=== PATIENT | female | born 1990 | race Caucasian/White ===

== ENCOUNTER 2024-06-02 13:24 | Observation (INO) | payer MEDICAID, SELFPAY ==
[2024-06-02] VITALS (12 sets, daily range): BP systolic 151–199; BP diastolic 74–92; PULSE 41–59; RESP 15–20; TEMP 36.5–36.8; O2SAT 95–100; BMI 38.9; BMI 39.3
--- NOTE | 2024-06-02 13:45 | ED_ITS ---
HPI - Abdominal Pain 2 General: Chief Complaint: Abdominal Pain Stated Complaint: stomach pain, back pain, vomiting, chills Time Seen by Provider: 06/02/24 13:38 History of Present Illness: 33-year-old female presents to the [facility] ency room complaining of periumbilical right upper quadrant pain radiating to her back with nausea and vomiting that began yesterday. Does not have anything that seem to precipitate or relieve it that she is noted. She previously has had a appendectomy. Denies dysuria urgency or frequency or vomiting. Associated Symptoms: Denies chills, dysuria and fever(s) Related Data Previous Rx's Medication Instructions Recorded clindamycin HCl 150 mg capsule 150 mg PO Q6H 7 days #28 caps 06/03/24 docusate sodium 100 mg capsule 100 mg PO BID #14 caps 06/03/24 (Colace) hydrocodone 7.5 mg-acetaminophen 1 tab PO Q6H PRN pain #20 tabs 06/03/24 325 mg tablet polyethylene glycol 3350 17 17 g PO DAILY 7 days #119 grams 06/03/24 gram/dose oral powder (Miralax) Allergies Allergy/AdvReac Type Severity Reaction Status Date / Time Penicillins Allergy Unknown Verified 06/02/24 13:35 Sulfa (Sulfonamide Allergy ALGY-Hives Verified 06/02/24 13:35 Antibiotics) Review of Systems 2 Const: Denies: fever(s) or chills Card: Denies: chest pain Resp: Denies: dyspnea GI: Denies: abdominal pain : Denies: dysuria, urinary frequency or urinary urgency Musc: Denies: neck pain or back pain Skin/Breast: Denies: rash Physical Exam 2 Const: GENERAL APPEARANCE: cooperative ORIENTATION/CONSCIOUSNESS: Yes awake, Yes oriented to person, Yes oriented to place and Yes oriented to time HENMT: COMMON NORMALS: normocephalic, atraumatic and hearing grossly normal bilaterally HEAD & SCALP: normocephalic and atraumatic Resp: COMMON NORMALS: normal respiratory effort, No retractions, No use of accessory muscles and clear to auscultation bilaterally AUSCULTATION: clear to auscultation bilaterally Cardio: COMMON NORMALS: regular rate, regular rhythm and No murmurs present (Cardio) RATE: regular rate RHYTHM: regular rhythm GI: COMMON NORMALS: No hepatosplenomegaly present AUSCULTATION: Yes normoactive bowel sounds PALPATION: Yes Tenderness to palpation present (GI) Details: RUQ, No Guarding due to palpation present (GI) and Yes No hepatosplenomegaly present Extremity: COMMON NORMALS: normal to inspection, capillary refill normal, no clubbing, cyanosis or edema, no calf tenderness and no pedal edema Neuro: SENSORIUM/ORIENTATION: Yes oriented to person, Yes oriented to place and Yes oriented to time Skin: COMMON NORMALS: no rashes or lesions noted GENERAL SKIN EXAM: no rashes or lesions noted Course 2 Vital Signs: Vital signs: Vital Signs Temperature 99 F 06/03/24 15:26 Pulse Rate 62 06/03/24 15:26 Respiratory Rate 16 06/03/24 15:26 Blood Pressure 128/76 06/03/24 15:26 Pulse Oximetry 99 06/03/24 15:26 Oxygen Delivery Me thod Room Air 06/03/24 12:00 MDM - Abdominal Pain Medical Decision Making Acute cholecystitis on imaging. Her function is normal but her white count is elevated she is in quite significant discomfort. Discussed with Dr. Pepper on-call for surgery who will admit for cholecystectomy. Medical Records I reviewed the patient's medical records. Lab Data I reviewed the patient's lab results. 06/03/24 04:07 06/03/24 04:07 Labs/Radiology: Radiology Impressions Abdomen/Pelvis CT 06/02/24 14:21 IMPRESSION: 1. Cholelithiasis with mild pericholecystic haziness raising the question of symptomatic cholelithiasis versus early acute cholecystitis in the proper clinical setting. Consider correlation with biliary labs and right upper quadrant ultrasound. Laboratory Results WBC 12.09 10^3/uL (3.29-11.43) H 06/02/24 14:14 RBC 4.77 10^6/uL (3.85-5.65) 06/02/24 14:14 Hgb 15.00 g/dL (11.27-16.99) 06/02/24 14:14 Hct 44.3 % (36-47) 06/02/24 14:14 MCV 92.9 fl (85-98) 06/02/24 14:14 MCH 31.4 pg (27-33) 06/02/24 14:14 MCHC 33.9 g/dL (30-55) 06/02/24 14:14 RDW 11.3 % (12.1-15.1) L 06/02/24 14:14 Plt Count 254 10^3/cmm (157-399) 06/02/24 14:14 MPV 11.8 fL (7.4-10.4) H 06/02/24 14:14 Neut % (Auto) 83.4 % 06/02/24 14:14 Lymph % (Auto) 13.2 % 06/02/24 14:14 [place] % (Auto) 2.6 % 06/02/24 14:14 Eos % (Auto) 0.2 % 06/02/24 14:14 Baso % (Auto) 0.3 % 06/02/24 14:14 Neut # (Auto) 10.08 10^3/uL (1.8-7.7) H 06/02/24 14:14 Lymph # (Auto) 1.6 10^3/uL (0.8-4.8) 06/02/24 14:14 [place] # (Auto) 0.3 10^3/uL (0.2-0.9) 06/02/24 14:14 Eos # (Auto) 0.0 10^3/uL (0.0-0.8) 06/02/24 14:14 Baso # (Auto) 0.0 10^3/uL (0.0-0.1) 06/02/24 14:14 Nucleated RBC % (auto) 0 % 06/02/24 14:14 Nucleated RBCs # 0.0 /100WBC 06/02/24 14:14 Sodium 138 mmol/L (136-145) 06/02/24 14:14 Potassium 4.1 mmol/L (3.5-5.1) 06/02/24 14:14 Chloride 102 mmol/L (98-107) 06/02/24 14:14 Carbon Dioxide 21 mmol/L (22-29) L 06/02/24 14:14 Anion Gap 19.1 (5-19) H 06/02/24 14:14 BUN 9 mg/dL (6-20) 06/02/24 14:14 Creatinine 0.8 mg/dL (0.5-0.9) 06/02/24 14:14 GFR Calculation 83.7 mL/min (90-130) L 06/02/24 14:14 Glucose 105 mg/dL (65-115) 06/02/24 14:14 Calculated Osmolality 285 mOsm/kg (285-295) 06/02/24 14:14 Calcium 9.4 mg/dL (8.5-10.5) 06/02/24 14:14 Total Bilirubin 0.4 mg/dL (0.15-1.2) 06/02/24 14:14 AST 20 U/L (0-32) 06/02/24 14:14 ALT 12 U/L (0-33) 06/02/24 14:14 Alkaline Phosphatase 69 U/L (35-105) 06/02/24 14:14 Total Protein 8.6 g/dL (6.6-8.7) 06/02/24 14:14 Albumin 4.6 g/dL (3.5-5.2) 06/02/24 14:14 Globulin 4.0 g/dL (1.3-4.6) 06/02/24 14:14 Lipase 19 U/L (13-60) 06/02/24 14:14 HCG, Qual Negative (Negative) 06/02/24 14:14 All radiology interpretation(s) finalized by discharge Discharge Plan Discharge Patient Disposition: Admitted As Inpatient Admit Provider: Hill Pepper Clinical Impression: Acute calculous cholecystitis Condition: Stable Discharge Diet: Advance as tolerated Discharge Activity: Resume usual activity 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
[2024-06-02 14:19] LABS: Basophils % 0.3 %; Eosinophils % 0.2 %; Hematocrit 44.3 % (36-47); Lymphocytes # 1.6 10^3/uL (0.8-4.8); Lymphocytes % 13.2 %; Mean Corpuscular HGB Conc 33.9 g/dL (30-55); Mean Corpuscular Hemoglobin 31.4 pg (27-33); Mean Corpuscular Volume 92.9 fl (85-98); Mean Platelet Volume 11.8 fL (7.4-10.4); Monocytes # 0.3 10^3/uL (0.2-0.9); Monocytes % 2.6 %; Neutrophils # 10.08 10^3/uL (1.8-7.7); Neutrophils % 83.4 %; Nucleated Red Blood Cells % 0 %; Platelet Count 254 10^3/cmm (157-399); Red Blood Count 4.77 10^6/uL (3.85-5.65); Red Cell Distribution Width 11.3 % (12.1-15.1); White Blood Count 12.09 10^3/uL (3.29-11.43)
--- NOTE | 2024-06-02 14:21 | CTR_ITS ---
PROCEDURE INFORMATION: Exam: CT Abdomen And Pelvis With Contrast Exam date and time: 06/02/2024 3:10 PM Age: 33 years old Clinical indication: Abdominal pain; Generalized; Prior surgery; Surgery date: 6+ months; Surgery type: Tubal; Additional info: Abd pain TECHNIQUE: Imaging protocol: Computed tomography of the abdomen and pelvis with contrast. Radiation optimization: All CT scans at this facility use at least one of these dose optimization techniques: automated exposure control; mA and/or kV adjustment per patient size (includes targeted exams where dose is matched to clinical indication); or iterative reconstruction. Contrast material: OMNI 350; Contrast volume: 100 ml; Contrast route: INTRAVENOUS (IV); COMPARISON: No relevant prior studies available. RADIATION DOSE METRICS: Total DLP (mGy-cm): 907.67 FINDINGS: Lungs: Subsegmental bibasilar atelectasis. The visualized lung bases are otherwise grossly clear. Diaphragm: No evidence of diaphragmatic defect. Liver: Hepatic steatosis. No evidence of focal hepatic lesion. Gallbladder and biliary ducts: There is extensive cholelithiasis with mild pericholecystic haziness raising the question of symptomatic cholelithiasis versus early acute cholecystitis in the proper clinical setting. No intrahepatic or extrahepatic biliary dilatation. Pancreas: Unremarkable. Spleen: Unremarkable. Adrenal glands: Unremarkable. Kidneys and ureters: There is a simple appearing right-sided renal cyst for which dedicated imaging follow-up is not required. Otherwise no evidence of renal parenchymal abnormality. No hydronephrosis or ureteral stone. Stomach and bowel: No evidence of bowel obstruction or perienteric inflammatory changes. Appendix: The appendix is not visualized, however there are no findings to suggest appendicitis. Intraperitoneal space: No evidence of free air or fluid collection. Vasculature: No aneurysmal dilatation or dissection of the abdominal aorta. The celiac trunk, SMA and OTONIEL are grossly patent. No evidence of IVC thrombus. The portal vein, SMV and splenic veins are grossly patent. Lymph nodes: No adenopathy. Urinary bladder: Grossly unremarkable. Reproductive: Grossly unremarkable. Bones/joints: No evidence of acute fracture or aggressive osseous lesion. Soft tissues: No evidence of fluid collection or hematoma in the superficial soft tissues. CT/CT abdomen pelvis w con* [id number] IMPRESSION: 1. Cholelithiasis with mild pericholecystic haziness raising the question of symptomatic cholelithiasis versus early acute cholecystitis in the proper clinical setting. Consider correlation with biliary labs and right upper quadrant ultrasound.
[2024-06-02] MEDS: sodium chloride 0.9% 1,000 ML 999 ML IV (14:22)
[2024-06-02] MEDS: ondansetron 2 mg/ML SDV 2 mL 4 MG IVP (14:23)
[2024-06-02] MEDS: morphine 4 mg/mL SDV 1 mL IVP ×3 (14:24→21:02)
[2024-06-02 14:39] LABS: Alanine Aminotransferase 12 U/L (0-33); Albumin Level 4.6 g/dL (3.5-5.2); Alkaline Phosphatase 69 U/L (35-105); Blood Urea Nitrogen 9 mg/dL (6-20); Calcium 9.4 mg/dL (8.5-10.5); Carbon Dioxide 21 mmol/L (22-29); Chloride 102 mmol/L (98-107); Creatinine Clr Calc Pharmacy 119.0392; Glomerular Filtration Rate 83.7 mL/min (90-130); Glucose 105 mg/dL (65-115); Lipase 19 U/L (13-60); Osmolality Calculated 285 mOsm/kg (285-295); Sodium 138 mmol/L (136-145); Total Bilirubin 0.4 mg/dL (0.15-1.2); Total Protein 8.6 g/dL (6.6-8.7)
[2024-06-02 14:52] LABS: Anion Gap 19.1 (5-19); HCG, Serum Qual Negative (Negative)
[2024-06-02 14:53] LABS: Aspartate Amino Transferase 20 U/L (0-32); Potassium 4.1 mmol/L (3.5-5.1)
[2024-06-02] MEDS: iohexol 350 mg/mL 500 mL Btl (per mL) IV (15:20)
--- NOTE | 2024-06-02 19:10 | PC.NURSE ---
pts hr was 39-41, notified dr grover of hr. he stated that is probably her normal. he wants to be notified by phone if it drops lower. pt has telemetry on.
[2024-06-02] MEDS: D5-NS 0.45% + KCL 20 mEq 20 MEQ/1,000 ML BAG 125 MEQ IV (20:42)
[2024-06-03] VITALS (15 sets, daily range): BP systolic 112–148; BP diastolic 69–86; PULSE 44–74; RESP 16–20; TEMP 36.4–37.2; O2SAT 95–100
[2024-06-03] MEDS: D5-NS 0.45% + KCL 20 mEq 20 MEQ/1,000 ML BAG 125 MEQ IV (02:40)
[2024-06-03 03:27] LABS: Charge for UA Resulting for Rev
[2024-06-03 03:31] LABS: Bilirubin Urine Negative (Negative); Blood Urine Negative (Negative); Glucose Urine UA Negative (Normal); Ketones Urine 1+ (Negative); Leukocyte Esterase Urine Trace (Negative); Nitrate Urine Negative (Negative); Protein Urine Negative (Negative); Urine Color Yellow (Yellow); pH Urine 5.5 (5-7)
[2024-06-03 03:34] LABS: Bacteria Urine Trace /hpf; Hyaline Casts Urine 0.81 /lpf; RBC Urine 0-2 /hpf (0-2); Squamous Epithelial Cell Urine 0-5 /hpf (0-5); WBC Urine 21-50 /hpf (0-5)
[2024-06-03 03:35] LABS: Specific Gravity, Urine 1.035 (1.005-1.030); Urine Appearance Slightly Cloudy (CLEAR)
[2024-06-03 04:18] LABS: Basophils # 0.1 10^3/uL (0.0-0.1); Basophils % 0.5 %; Eosinophils # 0.1 10^3/uL (0.0-0.8); Eosinophils % 0.6 %; Hematocrit 40.8 % (36-47); Lymphocytes # 2.9 10^3/uL (0.8-4.8); Lymphocytes % 23.9 %; Mean Corpuscular HGB Conc 33.3 g/dL (30-55); Mean Corpuscular Hemoglobin 31.1 pg (27-33); Mean Corpuscular Volume 93.4 fl (85-98); Mean Platelet Volume 11.4 fL (7.4-10.4); Monocytes % 7.9 %; Neutrophils # 8.12 10^3/uL (1.8-7.7); Neutrophils % 66.8 %; Nucleated Red Blood Cells % 0 %; Platelet Count 247 10^3/cmm (157-399); Red Blood Count 4.37 10^6/uL (3.85-5.65); Red Cell Distribution Width 11.4 % (12.1-15.1); White Blood Count 12.16 10^3/uL (3.29-11.43)
[2024-06-03 04:36] LABS: Alanine Aminotransferase 10 U/L (0-33); Albumin Level 3.9 g/dL (3.5-5.2); Alkaline Phosphatase 59 U/L (35-105); Anion Gap 14.3 (5-19); Aspartate Amino Transferase 16 U/L (0-32); Blood Urea Nitrogen 8 mg/dL (6-20); Calcium 8.5 mg/dL (8.5-10.5); Carbon Dioxide 24 mmol/L (22-29); Chloride 107 mmol/L (98-107); Creatinine Clr Calc Pharmacy 136.6786; Globulin 3.2 g/dL (1.3-4.6); Glomerular Filtration Rate 97.6 mL/min (90-130); Glucose 155 mg/dL (65-115); Osmolality Calculated 293 mOsm/kg (285-295); Potassium 4.3 mmol/L (3.5-5.1); Sodium 141 mmol/L (136-145); Total Bilirubin 0.5 mg/dL (0.15-1.2); Total Protein 7.1 g/dL (6.6-8.7)
--- NOTE | 2024-06-03 08:33 | P.ANESASSM_ITS ---
Pre-Anesthetic Assessment Height/Weight: Height 1.63 m Weight 103.827 kg Temp Pulse Resp BP Pulse Ox O2 Del Method 98.0 F 44 L 17 128/83 95 Room Air 06/03/24 04:00 06/03/24 05:37 06/03/24 04:00 06/03/24 04:00 06/03/24 04:00 06/03/24 04:00 Operation Date: 06/03/24 11:15 Proposed Procedures p Laparoscopic Cholecystectomy(Not Applicable) - Hill Pepper DO Familial anesthetic complications: None Was Beta Darrell taken within 24 hours: N/A Was Clonidine taken within 24 hours: N/A Last intake: Intake Last Liquid Date 06/02/24 Last Liquid Time 22:00 Last Solid Date 06/02/24 Last Solid Time 09:00 Social No alcohol and No tobacco Exam alert, oriented x 3, clear to auscultation bilaterally and regular rate & rhythm Airway Mallampati: Class III Dentition: other (missing) Metabolic Morbid Obesity Anesthetic Plan ASA status: 2 Anesthesia: General Risk of > 500 ml blood loss (7ml/kg in children): No Medications/Allergies Home Medications Medication Instructions Recorded Confirmed Last Taken Type No Known Home Medications 06/02/24 06/02/24 Unknown History Allergies Allergy/AdvReac Type Severity Reaction Status Date / Time Penicillins Allergy Unknown Verified 06/02/24 13:35 Sulfa (Sulfonamide Allergy ALGY-Hives Verified 06/02/24 13:35 Antibiotics) Current Medications Generic Name Dose Route Start Last Admin Trade Name Freq PRN Reason Stop Dose Admin Potassium Chloride/Dextrose/Sod Cl 20 meq in 1,000 mls @ 125 mls/hr 06/02/24 19:32 06/03/24 02:40 D5-Ns 0.45% + Kcl 20 Meq IV 125 mls/hr .Q8H CRISTI Administration Morphine Sulfate 4 mg 06/02/24 19:32 06/02/24 21:02 Morphine 4 Mg/Ml Sdv 1 Ml IVP 4 mg Q4H PRN Administration SEVERE PAIN Data Anesthesia 06/03/24 04:07 06/03/24 04:07 Short CBC 06/02/24 06/03/24 Range/Units 14:14 04:07 WBC 12.09 H 12.16 H (3.29-11.43) 10^3/uL Hgb 15.00 13.60 (11.27-16.99) g/dL Hct 44.3 40.8 (36-47) % MCV 92.9 93.4 (85-98) fl Plt Count 254 247 (157-399) 10^3/cmm Neut % (Auto) 83.4 66.8 % Neut # (Auto) 10.08 H 8.12 H (1.8-7.7) 10^3/uL BMP 06/02/24 06/03/24 14:14 04:07 Sodium 138 141 Potassium 4.1 4.3 Chloride 102 107 Carbon Dioxide 21 L 24 BUN 9 8 Creatinine 0.8 0.7 Glucose 105 155 H Calcium 9.4 8.5 Liver Function 06/02/24 06/03/24 Range/Units 14:14 04:07 Total Bilirubin 0.4 0.5 (0.15-1.2) mg/dL AST 20 16 (0-32) U/L ALT 12 10 (0-33) U/L Alkaline Phosphatase 69 59 (35-105) U/L Albumin 4.6 3.9 (3.5-5.2) g/dL Urine 06/03/24 Range/Units 03:19 Urine Color Yellow (Yellow) Urine Appearance Slightly cloudy (CLEAR) Urine pH 5.5 (5-7) Ur Specific [place] 1.035 H (1.005-1.030) Urine Protein Negative (Negative) Urine Glucose (UA) Negative (Normal) Urine Ketones 1+ H (Negative) Urine Nitrate Negative (Negative) Urine Bilirubin Negative (Negative) Ur Leukocyte Esterase Trace A (Negative) Urine RBC 0-2 (0-2) /hpf Urine WBC 21-50 H (0-5) /hpf Cardiac Studies: 2 No Data to Display
--- NOTE | 2024-06-03 08:33 | P.HP_ITS ---
Providers/Chief Complaint 2 Admitting Physician: Hill Pepper DO Chief Complaint: stomach pain, back pain, vomiting, chills History of Present Illness Eve Carter is a 33 year old female that the hospital with a 1 day history of right upper quadrant abdominal pain radiating to her back along with nausea and vomiting. The pain was sharp and severe. Eating made the pain worse. Nothing makes pain better. A CT of the abdomen pelvis showed acute calculus cholecystitis. She denies any diarrhea, constipation, hematochezia and/or melena. Review of Systems 2 General: Reports: 10 or more systems reviewed and unremarkable except in HPI and below Medications/Allergies Home Medications Medication Instructions Recorded Confirmed Last Taken Type No Known Home Medications 06/02/24 06/02/24 Unknown History Allergies Allergy/AdvReac Type Severity Reaction Status Date / Time Penicillins Allergy Unknown Verified 06/02/24 13:35 Sulfa (Sulfonamide Allergy ALGY-Hives Verified 06/02/24 13:35 Antibiotics) Vitals/I&O/Wt Last Vital Signs Temp 98.0 F 06/03/24 04:00 Pulse 44 L 06/03/24 05:37 Resp 17 06/03/24 04:00 BP 128/83 06/03/24 04:00 Pulse Ox 95 06/03/24 04:00 O2 Del Method Room Air 06/03/24 04:00 06/02/24 06/03/24 06/03/24 22:59 06:59 14:59 Intake Total 1100 / 1100 745.833 / 1845.833 Output Total 400 / 400 Balance 1100 / 1100 345.833 / 1445.833 Weight last 48 hrs Weight 228 lb 14.4 oz Weight 229 lb Weight 227 lb Physical Exam 2 Narrative: General : Patient is well developed , no acute distress, oriented x3 Head : Normal cephalic, a-traumatic. Ears : Pinnae and external canal are normal. Hearing is normal. Eyes : PERRLA, Sclera and injection are normal. No conjunctival discharge. Nose : Mucous membranes are without erythema. Throat : buccal mucosa is normal, gums are without significant recession or hypertrophy. Lungs : Equal chest rise bilaterally, no use of accessory muscles, trachea is midline. Cor : Rate and rhythm are normal. Abdomen : Soft, ND, tender to palpation right upper quadrant, negative Fuentes's, no g/r/m Extremities : No edema, no cyanosis or clubbing, dorsalis pedis pulses are present bilaterally, non-tender to palpation of calves. Upper extremities are normal bilaterally. Back : non-tender to palpation, no CVA tenderness. Neuro : CN II - XII intact, Upper and lower extremities have equal and full strength Data 06/03/24 04:07 06/03/24 04:07 A&P Assessment and plan (1) Acute calculous cholecystitis: Plan Laparoscopic cholecystectomy The risks and benefits of the procedure, including but not limited to, bleeding, infection, scar, numbness, pain, damage to surrounding structures, damage to common bile duct requiring additional surgery, conversion to an open procedure, were explained to the patient. He is understanding of the risks and wishes to proceed. Attestations 2 Medical Necessity Statement*: Patient might be discharged home after cholecystectomy or require 1 night in the hospital depending on the severity of the disease Coding Level of Care Code 49391 Diagnoses Acute calculous cholecystitis K80.00
[2024-06-03] MEDS: clindamycin 600 MG/50 ML PREMIX 100 MG IV (08:50)
[2024-06-03] MEDS: lidocaine-epi 2% PF 1:200,000 20 mL SDV 6 ML XX (09:21)
--- NOTE | 2024-06-03 09:31 | P.OP_ITS ---
Operative Report Date of procedure: June 03, 2024 Surgeon: Hill Pepper DO Procedure: Preoperative diagnosis: Acute calculous cholecystitis Postoperative diagnosis: Same Procedure performed: Laparoscopic cholecystectomy Surgeon: Dr. Hill Pepper DO Estimated blood loss: 5 mL Specimens: Gallbladder to pathology Complications: None apparent Description of procedure: Patient was wheeled into the operative room and placed on the OR table in a supine position. Abdomen was inspected prepped and draped in usual sterile fashion. Time-out was performed and all present were in agreement. A 15 blade scalp was used to make a stab incision in the left upper quadrant and intra- abdominal insufflation was achieved using a Veress needle. After localizing the tissue incisions were made and a 5 millimeter trocar was placed into the umbilicus as well as 2 in the right upper quadrant. A 12 millimeter trocar was placed in the epigastrium. The gallbladder was very inflamed and large, filled with stones. Gallbladder was grasped and elevated. The triangle of Calot was carefully dissected using blunt dissection and electrocautery until the triangle of Calot clearly identified. The cystic duct was clipped proximally and double clipped distally. The duct was then ligated proximally. The cystic artery was doubly clipped and ligated. The gallbladder was then removed from the liver bed using electrocautery. The gallbladder was removed from the abdomen using an Endo-Catch bag through the epigastric incision. Due to the size of the gallbladder, the epigastric incision had to be significantly extended. The artis er bed was inspected and no bleeding was seen. Due to the size of the defect in the fascia, the fascia at the epigastric incision was closed with a Escobar- Nini and a [id number] Vicryl suture x 2. The abdomen was irrigated and suctioned. All ports removed. Skin was washed and dried. Incisions were closed with 4-0 Monocryl in a subcuticular interrupted fashion. Skin glue was applied. Patient tolerated the procedure well.
--- NOTE | 2024-06-03 10:23 | PC.NURSE ---
pt in surgery
--- NOTE | 2024-06-03 10:25 | ANE.PACU2 ---
Inpatient post-anesthesia follow up: Airway intact: Yes Vital signs: Temperature 99 F Pulse Rate 62 Respiratory Rate 16 Blood Pressure 128/76 Pulse Oximetry 99 Oxygen Delivery Me thod Room Air Oxygen Flow Rate Fraction of Inspir ed Oxygen Hydration adequate: Yes Nausea and vomiting: No Pain level: 1 Mental status: Baseline
--- NOTE | 2024-06-03 11:01 | PM.DCS ---
Discharge Providers Date of Admission: 06/02/24 16:31 Date of Discharge: June 03, 2024 Attending Provider at Admission: Hill Pepper DO Attending Provider at Discharge: Hill Pepper DO Diagnoses at Discharge Discharge Diagnosis (1) Acute calculous cholecystitis: Status: Acute Reason for Visit Reason for Visit: stomach pain, back pain, vomiting, chills Hospital Course Hospital Course This is a very pleasant 33-year-old female who presented to hospital with abdominal pain. She was diagnosed with acute calculous cholecystitis. She underwent laparoscopic cholecystectomy was discharged home in good condition the same day Physical Exam Narrative: General : Patient is well developed , no acute distress, oriented x3 Head : Normal cephalic, a-traumatic. Ears : Pinnae and external canal are normal. Hearing is normal. Eyes : PERRLA, Sclera and injection are normal. No conjunctival discharge. Nose : Mucous membranes are without erythema. Throat : buccal mucosa is normal, gums are without significant recession or hypertrophy. Lungs : Equal chest rise bilaterally, no use of accessory muscles, trachea is midline. Cor : Rate and rhythm are normal. Abdomen : Soft, ND, appropriately tender, no g/r/m Extremities : No edema, no cyanosis or clubbing, dorsalis pedis pulses are present bilaterally, non-tender to palpation of calves. Upper extremities are normal bilaterally. Back : non-tender to palpation, no CVA tenderness. Neuro : CN II - XII intact, Upper and lower extremities have equal and full strength Discharge Data Studies Completed and Pending Completed Studies During Hospitalization Category Date Time Status CT abdomen pelvis w con* [id number] Stat Cat Scan 06/02/24 14:21 Completed Pending at discharge Category Date Time Status Pathology: Surgical [PTH] Routine Pth 06/03/24 09:21 Ordered Radiology Impressions Abdomen/Pelvis CT 06/02/24 14:21 IMPRESSION: 1. Cholelithiasis with mild pericholecystic haziness raising the question of symptomatic cholelithiasis versus early acute cholecystitis in the proper clinical setting. Consider correlation with biliary labs and right upper quadrant ultrasound. Laboratory Results WBC 12.16 10^3/uL (3.29-11.43) H 06/03/24 04:07 RBC 4.37 10^6/uL (3.85-5.65) 06/03/24 04:07 Hgb 13.60 g/dL (11.27-16.99) 06/03/24 04:07 Hct 40.8 % (36-47) 06/03/24 04:07 MCV 93.4 fl (85-98) 06/03/24 04:07 MCH 31.1 pg (27-33) 06/03/24 04:07 MCHC 33.3 g/dL (30-55) 06/03/24 04:07 RDW 11.4 % (12.1-15.1) L 06/03/24 04:07 Plt Count 247 10^3/cmm (157-399) 06/03/24 04:07 MPV 11.4 fL (7.4-10.4) H 06/03/24 04:07 Neut % (Auto) 66.8 % 06/03/24 04:07 Lymph % (Auto) 23.9 % 06/03/24 04:07 [place] % (Auto) 7.9 % 06/03/24 04:07 Eos % (Auto) 0.6 % 06/03/24 04:07 Baso % (Auto) 0.5 % 06/03/24 04:07 Neut # (Auto) 8.12 10^3/uL (1.8-7.7) H 06/03/24 04:07 Lymph # (Auto) 2.9 10^3/uL (0.8-4.8) 06/03/24 04:07 [place] # (Auto) 1.0 10^3/uL (0.2-0.9) H 06/03/24 04:07 Eos # (Auto) 0.1 10^3/uL (0.0-0.8) 06/03/24 04:07 Baso # (Auto) 0.1 10^3/uL (0.0-0.1) 06/03/24 04:07 Nucleated RBC % (auto) 0 % 06/03/24 04:07 Nucleated RBCs # 0.0 /100WBC 06/03/24 04:07 Sodium 141 mmol/L (136-145) 06/03/24 04:07 Potassium 4.3 mmol/L (3.5-5.1) 06/03/24 04:07 Chloride 107 mmol/L (98-107) 06/03/24 04:07 Carbon Dioxide 24 mmol/L (22-29) 06/03/24 04:07 Anion Gap 14.3 (5-19) 06/03/24 04:07 BUN 8 mg/dL (6-20) 06/03/24 04:07 Creatinine 0.7 mg/dL (0.5-0.9) 06/03/24 04:07 GFR Calculation 97.6 mL/min (90-130) 06/03/24 04:07 Glucose 155 mg/dL (65-115) H 06/03/24 04:07 Calculated Osmolality 293 mOsm/kg (285-295) 06/03/24 04:07 Calcium 8.5 mg/dL (8.5-10.5) 06/03/24 04:07 Total Bilirubin 0.5 mg/dL (0.15-1.2) 06/03/24 04:07 AST 16 U/L (0-32) 06/03/24 04:07 ALT 10 U/L (0-33) 06/03/24 04:07 Alkaline Phosphatase 59 U/L (35-105) 06/03/24 04:07 Total Protein 7.1 g/dL (6.6-8.7) 06/03/24 04:07 Albumin 3.9 g/dL (3.5-5.2) 06/03/24 04:07 Globulin 3.2 g/dL (1.3-4.6) 06/03/24 04:07 Lipase 19 U/L (13-60) 06/02/24 14:14 HCG, Qual Negative (Negative) 06/02/24 14:14 Urine Color Yellow (Yellow) 06/03/24 03:19 Urine Appearance Slightly cloudy (CLEAR) 06/03/24 03:19 Urine pH 5.5 (5-7) 06/03/24 03:[address] 1.035 (1.005-1.030) H 06/03/24 03:19 Urine Protein Negative (Negative) 06/03/24 03:19 Urine Glucose (UA) Negative (Normal) 06/03/24 03:19 Urine Ketones 1+ (Negative) H 06/03/24 03:19 Urine Blood Negative (Negative) 06/03/24 03:19 Urine Nitrate Negative (Negative) 06/03/24 03:19 Urine Bilirubin Negative (Negative) 06/03/24 03:19 Urine Urobilinogen 1.0 mg/dL (Negative) 06/03/24 03:19 Ur Leukocyte Esterase Trace (Negative) A 06/03/24 03:19 Urine RBC 0-2 /hpf (0-2) 06/03/24 03:19 Urine WBC 21-50 /hpf (0-5) H 06/03/24 03:19 Ur Squamous Epith Cells 0-5 /hpf (0-5) 06/03/24 03:19 Amorphous Sediment Not Reportable 06/03/24 03:19 Urine Bacteria Trace /hpf (NONE) 06/03/24 03:19 Hyaline Casts 0.81 /lpf 06/03/24 03:19 Procedures Performed Laparoscopic cholecystectomy Vitals Last Vital Signs Temp 98.4 F 06/03/24 10:24 Pulse 58 L 06/03/24 10:24 Resp 17 06/03/24 10:24 BP 136/72 06/03/24 10:24 Pulse Ox 99 06/03/24 10:24 O2 Del Method Room Air 06/03/24 10:24 Discharge Plan Discharge Patient Disposition: Home Condition: Stable Prescriptions: New hydrocodone-acetaminophen 7.5-325 mg tablet 1 tab PO Q6H PRN (Reason: pain) Qty: 20 0RF Miralax 17 gram/dose powder 17 g PO DAILY 7 Days Qty: 119 0RF Colace 100 mg capsule 100 mg PO BID Qty: 14 0RF clindamycin HCl 150 mg capsule 150 mg PO QID 7 Days Qty: 28 0RF Discharge Orders: Discharge Order (Routine); Ordered 06/03/24 Ordered By: Hill Pepper Referrals: Hill Pepper DO [Physician] - 2 weeks Discharge Diet: Advance as tolerated Discharge Activity: Resume usual activity Patient Instructions: Acute Wound Care (DC), Opioid Safety, Post Anesthesia Care Activity Restrictions/Additional Instructions: Do not soak incisions underwater for 2 weeks. Shower regularly. Discharge Attestations Time Spent in Discharge Care*: less than 30 min Quality Metrics Clinical Quality Measures [ No reported AMI, CVA or VTE this stay] Coding Level of Care Code Acute Code for Chg Fwd Diagnoses Acute calculous cholecystitis K80.00
[2024-06-03] MEDS: HYDROcodone-acetaminophen 7.5-325 mg Tablet 1 TAB PO (11:58)
--- NOTE | 2024-06-03 15:25 | PC.NURSE ---
Discussed discharge medications, restrictions, signs and symptoms of infection. Patient verbalized understanding. Spouse and children in the room with patient.
== END 2024-06-03 13:10 | disposition home or self-care (01) ==
LOC: ER 17:06 → MEDSURG 19:09
PROVIDERS: Admitting Provider Surgery; Emergency Provider Family Medicine; Visit Provider Surgery
PROC: 0FT44ZZ Resection of Gallbladder, Percutaneous Endoscopic Approach (ICD-10-PCS; CPT 47562; principal; 2024-06-03 11:05)
DX: K80.10 Calculus of gallbladder with chronic cholecystitis without obstruction (principal)
CPT/HCPCS: 47562; 36415; 74177; 80053; 81003; 81015; 83690; 84703; 85025; 88304; 96361; 96374; 96375; 96376; 99285; G0378; J0131; J1100; J2270; J2405; J2704; J2710; J3010; J3490; J7030

== ENCOUNTER 2024-11-22 10:45 | Outpatient (CLI) | payer MEDICAID, SELFPAY ==
--- NOTE | 2024-11-22 10:56 | MM_ITS ---
WS: [id number] BILATERAL 3D TOMOSYNTHESIS DIGITAL DIAGNOSTIC MAMMOGRAPHY WITH CAD CLINICAL INFORMATION: BILATERAL BREAST PAIN HISTORY: Breast pain COMPARISON: Baseline TECHNIQUE: Bilateral CC and MLO views and ML views FINDINGS: The breasts are composed of heterogeneous fibroglandular density tissue, which can limit the detection of small underlying mass lesions. A few incidental punctate calcifications. No definite mammographic abnormalities in the areas of pain. Ultrasound is pending. ULTRASOUND BREAST BILATERAL TECHNIQUE: Ultrasound bilateral breast focused area of concern. CLINICAL INFORMATION: BILATERAL BREAST PAIN FINDINGS: RIGHT BREAST: Ultrasound RIGHT breast area of concern. No cystic or solid lesions. No suspicious abnormalities in the area of concern at the 9 o'clock position 4 cm from the nipple. LEFT BREAST: Ultrasound LEFT breast area of concern. No cystic or solid lesions. No suspicious lesions at the 3 o'clock position 4 cm from the nipple. MM/MM diag BI tomosynthesis [id number] IMPRESSION: DENSITY: The breasts are heterogeneously dense, which may obscure small masses. BI-RADS: 2 - Benign FOLLOW UP: Age 42 Recommend annual screen mammography age 40
== END 2024-11-22 10:46 | disposition home or self-care (01) ==
PROVIDERS: Visit Provider Family Medicine
DX: N64.4 Mastodynia (principal); R92.1 Mammographic calcification found on diagnostic imaging of breast; R92.333 Mammographic heterogeneous density, bilateral breasts
CPT/HCPCS: 76642; 77062; G0279